=== PATIENT | male | born 1970 | race Caucasian/White ===

== ENCOUNTER 2021-08-06 18:37 | Emergency (ER) | payer OTHER ==
[~2021-08-06] VITALS: Ht 177.8 cm; Wt 94.3 kg
[2021-08-06 19:26] LABS: HEMOGLOBIN 13.3 gm/dl (14.0-17.5); RED BLOOD COUNT 4.26 M/UL (4.20-5.50); WHITE BLOOD COUNT 6.7 K/UL (4.5-11.0)
[2021-08-06 20:05] LABS: BUN/CREATININE RATIO 23 (0-10)
== END 2021-08-06 21:50 | disposition home or self-care (01) ==
LOC: ER1 18:37
PROVIDERS: Preventive Medicine Occupational Medicine
DX: I95.9 Hypotension, unspecified (principal); F41.9 Anxiety disorder, unspecified; I10 Essential (primary) hypertension; F17.210 Nicotine dependence, cigarettes, uncomplicated
CPT/HCPCS: 71045; 80053; 82550; 82553; 83874; 84484; 85025; 93005; 99284

== ENCOUNTER 2021-08-22 14:41 | Emergency (ER) | payer OTHER ==
[2021-08-22 15:05] LABS: HEMOGLOBIN 12.4 gm/dl (14.0-17.5); RED BLOOD COUNT 4.01 M/UL (4.20-5.50); WHITE BLOOD COUNT 6.6 K/UL (4.5-11.0)
[2021-08-22 15:25] LABS: BUN/CREATININE RATIO 10 (0-10)
[2021-08-22] MEDS ORDERED: IBUPROFEN600 MG PO (17:50)
[2021-08-22] MEDS ORDERED: CYCLOBENZAPRINE10 MG PO (17:50)
== END 2021-08-22 17:56 | disposition home or self-care (01) ==
LOC: ER1 14:41
PROVIDERS: Physician Assistant
DX: M25.512 Pain in left shoulder (principal); F17.210 Nicotine dependence, cigarettes, uncomplicated
CPT/HCPCS: 71045; 73030; 73060; 80053; 82550; 82553; 84484; 85025; 93005; 96374; 96375; 99284; J1100; J1885

== ENCOUNTER → 2021-10-13 | Outpatient (CLI) | payer OTHER ==
[~2021-10-13] MED LIST: CYCLOBENZAPRINE10 MG PO; IBUPROFEN600 MG PO
== END ==
LOC: KOH-I 13:30
DX: F17.210 Nicotine dependence, cigarettes, uncomplicated (principal)
CPT/HCPCS: 71271